=== PATIENT | female | born 1990 | race Caucasian/White ===

== ENCOUNTER 2017-10-19 07:38 | Day surgery (SDC) | payer OTHER, MEDICAID ==
[2017-10-19] MEDS ORDERED: SOD CHLORIDE 0.9% 1,000 ML IV (11:00)
[2017-10-19] MEDS ORDERED: CEFAZOLIN 2 GM/50 ML (PMX) 50 ML IVPB (11:00)
[2017-10-19] MEDS ORDERED: BUPIVACAINE 0.5% (SDV) 30 ML INJ (12:13)
[2017-10-19] MEDS ORDERED: MIDAZOLAM 1 MG/ML 2 ML INJ (12:28)
[2017-10-19] MEDS ORDERED: FENTAnyl 50 MCG/ML VIAL (12:28)
[2017-10-19] MEDS ORDERED: KETOROLAC 30 MG INJ (12:29)
[2017-10-19] MEDS ORDERED: METOCLOPRAMIDE 10 MG INJ (12:29)
[2017-10-19] MEDS ORDERED: ONDANSETRON 4 MG INJ (12:29)
[2017-10-19] MEDS: BUPIVACAINE 0.5% 30 ML VIAL INJ ×2 (12:56)
[2017-10-19] MEDS ORDERED: MEPERIDINE 25 MG INJ IV (13:00)
[2017-10-19] MEDS ORDERED: OXYCODONE/ACETAMINOPHEN (5/325) TAB PO ×2 (13:00)
[2017-10-19] MEDS ORDERED: DIPHENHYDRAMINE 50 MG INJ IV (13:00)
[2017-10-19] MEDS ORDERED: ONDANSETRON 4 MG INJ IV (13:00)
[2017-10-19] MEDS ORDERED: HYDROmorphONE 1 MG/5 ML IV SYRINGE IV ×3 (13:00)
[2017-10-19] MEDS ORDERED: HYDROCODONE/APAP (5/325) TAB PO (13:30)
== END 2017-10-19 15:05 | disposition home or self-care (01) ==
LOC: SDS 07:38
DX: D17.0 Benign lipomatous neoplasm of skin and subcutaneous tissue of head, face and neck (principal)
CPT/HCPCS: 14041; 84703; 88307

== ENCOUNTER 2017-10-21 22:28 | Emergency (ER) | payer OTHER | END 2017-10-22 01:05 | disposition home or self-care (01) | LOC: FTE 22:28 | DX: M96.843 Postprocedural seroma of a musculoskeletal structure following other procedure (principal) | CPT/HCPCS: 99282; Z7502 ==

== ENCOUNTER 2017-10-30 01:33 | Inpatient (IN) | payer OTHER ==
[2017-10-30] MEDS ORDERED: ZOLPIDEM 5 MG TAB PO (03:30)
[2017-10-30] MEDS ORDERED: VANCOMYCIN IV PER PHARMACY XX (03:30)
[2017-10-30] MEDS: morphine 2 MG INJ IV ×4 (03:53→23:28)
[2017-10-30] MEDS: CEFTRIAXONE 1 GM/50 ML (PMX) 50 ML IVPB (03:57)
[2017-10-30] MEDS: VANCOMYCIN 2 GM in SOD CHLORIDE 0.9% 500 ML IVPB (04:52)
[2017-10-30] MEDS: PANTOPRAZOLE 40 MG INJ IV (05:52)
[2017-10-30] MEDS: HYDROCODONE/APAP (5/325) TAB PO ×3 (05:53→20:43)
[2017-10-30 06:33] LABS: ADD MAN DIFF? NO
[2017-10-30 06:40] LABS: BASOPHIL # 0.1 10^3/ul (0.0-0.1); BASOPHILS % 0.5 % (0.0-2.0); EOSINOPHILS # 1.2 10^3/ul (0.0-0.5); HEMATOCRIT 36.2 % (37.0-47.0); HEMOGLOBIN 11.8 g/dl (12.0-16.0); LYMPHOCYTES # 2.2 10^3/ul (0.8-2.9); LYMPHOCYTES % 18.1 % (15.0-51.0); MEAN CORPUSCULAR HEMOGLOBIN 28.1 pg (29.0-33.0); MEAN CORPUSCULAR HGB CONC 32.6 g/dl (32.0-37.0); MEAN CORPUSCULAR VOLUME 86.2 fl (82.0-101.0); MEAN PLATELET VOLUME 10.6 fl (7.4-10.4); MONOCYTES % 8.1 % (0.0-11.0); NEUTROPHIL # 7.5 10^3/ul (1.6-7.5); PLATELET COUNT 249 10^3/UL (140-415); RED CELL DISTRIBUTION WIDTH 13.7 % (11.5-14.5)
[2017-10-30 07:12] LABS: ANION GAP 14 (8-16); BLOOD UREA NITROGEN 8 mg/dl (7-20); CALCIUM 8.7 mg/dl (8.4-10.2); CARBON DIOXIDE 25 mmol/L (21-31); CHLORIDE 104 mmol/L (97-110); CREATININE 0.52 mg/dl (0.44-1.00); GLUCOSE 92 mg/dl (70-220); POTASSIUM 3.9 mmol/L (3.5-5.1); SODIUM 139 mmol/L (135-144)
[2017-10-30] MEDS: VANCOMYCIN 1 GM 250 ML IVPB ×2 (13:08→20:37)
[2017-10-30 15:14] LABS: ADD MAN DIFF? NO; BASOPHIL # 0.1 10^3/ul (0.0-0.1); BASOPHILS % 0.7 % (0.0-2.0); EOSINOPHILS # 1.2 10^3/ul (0.0-0.5); EOSINOPHILS % 13.6 % (0.0-7.0); HEMATOCRIT 36.7 % (37.0-47.0); HEMOGLOBIN 11.7 g/dl (12.0-16.0); LYMPHOCYTES # 1.9 10^3/ul (0.8-2.9); LYMPHOCYTES % 20.6 % (15.0-51.0); MEAN CORPUSCULAR HEMOGLOBIN 27.3 pg (29.0-33.0); MEAN CORPUSCULAR HGB CONC 31.9 g/dl (32.0-37.0); MEAN CORPUSCULAR VOLUME 85.7 fl (82.0-101.0); MEAN PLATELET VOLUME 10.7 fl (7.4-10.4); MONOCYTE # 0.9 10^3/ul (0.3-0.9); MONOCYTES % 9.7 % (0.0-11.0); NEUTROPHILS % 55.3 % (39.0-77.0); PLATELET COUNT 259 10^3/UL (140-415); RED BLOOD COUNT 4.28 10^6/ul (4.20-5.40); RED CELL DISTRIBUTION WIDTH 13.9 % (11.5-14.5)
[2017-10-30 15:14] LABS: WHITE BLOOD COUNT 9.1 10^3/ul (4.8-10.8)
[2017-10-31] MEDS: morphine 2 MG INJ IV ×2 (03:35→08:14)
[2017-10-31] MEDS: CEFTRIAXONE 1 GM/50 ML (PMX) 50 ML IVPB (03:35)
[2017-10-31 04:49] LABS: ADD MAN DIFF? NO
[2017-10-31 04:51] LABS: BASOPHIL # 0.1 10^3/ul (0.0-0.1); BASOPHILS % 0.7 % (0.0-2.0); EOSINOPHILS # 1.3 10^3/ul (0.0-0.5); EOSINOPHILS % 13.1 % (0.0-7.0); HEMATOCRIT 36.5 % (37.0-47.0); HEMOGLOBIN 11.5 g/dl (12.0-16.0); LYMPHOCYTES # 2.3 10^3/ul (0.8-2.9); LYMPHOCYTES % 23.4 % (15.0-51.0); MEAN CORPUSCULAR HEMOGLOBIN 27.6 pg (29.0-33.0); MEAN CORPUSCULAR HGB CONC 31.5 g/dl (32.0-37.0); MEAN CORPUSCULAR VOLUME 87.5 fl (82.0-101.0); MEAN PLATELET VOLUME 10.6 fl (7.4-10.4); MONOCYTE # 1.1 10^3/ul (0.3-0.9); MONOCYTES % 10.7 % (0.0-11.0); NEUTROPHIL # 5.2 10^3/ul (1.6-7.5); NEUTROPHILS % 51.7 % (39.0-77.0); PLATELET COUNT 250 10^3/UL (140-415); RED BLOOD COUNT 4.17 10^6/ul (4.20-5.40); RED CELL DISTRIBUTION WIDTH 13.7 % (11.5-14.5)
[2017-10-31 05:42] LABS: PHOSPHORUS 3.8 mg/dl (2.5-4.9)
[2017-10-31 05:43] LABS: ANION GAP 15 (8-16); BLOOD UREA NITROGEN 11 mg/dl (7-20); CALCIUM 8.7 mg/dl (8.4-10.2); CARBON DIOXIDE 22 mmol/L (21-31); CHLORIDE 108 mmol/L (97-110); CREATININE 0.56 mg/dl (0.44-1.00); GLUCOSE 103 mg/dl (70-220); POTASSIUM 4.1 mmol/L (3.5-5.1); SODIUM 141 mmol/L (135-144)
[2017-10-31 05:47] LABS: VANCOMYCIN,TROUGH 8.2 ug/ml (10.0-20.0)
[2017-10-31] MEDS: PANTOPRAZOLE 40 MG INJ IV (06:07)
[2017-10-31] MEDS: VANCOMYCIN 1 GM 250 ML IVPB (06:07)
[2017-10-31] MEDS: HYDROCODONE/APAP (5/325) TAB PO (12:46)
[2017-10-31] MEDS: VANCOMYCIN 1.25 GM in SOD CHLORIDE 0.9% 250 ML IVPB (12:46)
[2017-10-31] MEDS ORDERED: morphine LIQ (10 MG/5 ML) CUP PO (14:30)
== END 2017-10-31 16:50 | disposition home health service (06) | DRG 920 ==
LOC: TEL 01:33 → MS2 23:30
DX: L76.33 Postprocedural seroma of skin and subcutaneous tissue following a dermatologic procedure (principal); Z68.42 Body mass index [BMI] 45.0-49.9, adult; Y84.8 Other medical procedures as the cause of abnormal reaction of the patient, or of later complication, without mention of misadventure at the time of the procedure; E66.9 Obesity, unspecified
CPT/HCPCS: 80048; 80202; 83735; 84100; 85025; 87070; 87081

== ENCOUNTER 2017-11-16 20:39 | Emergency (ER) | payer OTHER ==
[2017-11-16] MEDS: LIDOCAINE 2% (MDV) 20 ML INJ INJ ×2 (21:37→22:49)
[2017-11-16] MEDS: CEFTRIAXONE 1 GM INJ IM (22:50)
== END 2017-11-16 22:58 | disposition home or self-care (01) ==
LOC: FTE 20:39
DX: L02.11 Cutaneous abscess of neck (principal)
CPT/HCPCS: 10060; 96372; 99284-25